=== PATIENT | male | born 1995 | race African-American/Black ===

== ENCOUNTER 2017-10-31 19:10 | Emergency (ER) | payer OTHER ==
[~2017-10-31] VITALS: Ht 167.6 cm; Wt 65.0 kg
[2017-10-31] MEDS ORDERED: SODIUM CHLORIDE 0.9% 1,000 ML IV ONE (20:03)
[2017-10-31] MEDS ORDERED: LIDOCAINE HCL 1%/EPI 1:200,000 30 ML VIAL MC ONE (20:15)
[2017-10-31] MEDS ORDERED: BACITRACIN ZINC OINT UDPKT TOP ONE (20:15)
[2017-10-31] MEDS ORDERED: TETANUS, DIPHTHERIA, PERTUSSIS VAC/PF 0.5ML (>7YR OLD) IM ONE (20:15)
[2017-10-31 20:51] LABS: BASOPHILS % 0.2 % (0.0-2.0); EOSINOPHILS % 0.1 % (0.0-5.0); HEMATOCRIT. 42.7 % (42.0-52.0); HEMOGLOBIN. 14.7 g/dL (14.0-18.0); LYMPHOCYTES % 11.6 % (20.0-50.0); MEAN CORPUSCULAR HEMOGLOBIN 30.2 pg (28.0-32.0); MEAN CORPUSCULAR VOLUME 87.5 fL (80.0-94.0); MEAN PLATELET VOLUME 7.7 fl (7.4-10.4); MONOCYTES % 10.9 % (2.0-8.0); NEUTROPHILS % 77.2 % (40.0-76.0); PLATELET 253 x1000/uL (130-400); RED BLOOD CELL COUNT 4.88 mill/uL (4.7-6.1); RED CELL DISTRIBUTION WIDTH 13.3 % (11.6-14.6)
[2017-10-31 20:56] LABS: CHLORIDE 107 mEq/L (98-107)
[2017-10-31 20:57] LABS: INR 1.2; PROTHROMBIN TIME 12.7 sec (9.4-11.6)
[2017-10-31 21:00] LABS: ETHANOL BLOOD < 10 mg/dL
[2017-10-31 21:03] LABS: AMMONIA 45 uMol/L (<32)
[2017-10-31] MEDS ORDERED: MORPHINE SULFATE 2 MG/ML CPJ (NOT FOR IM USE) IV STA (21:08)
[2017-10-31] MEDS ORDERED: MORPHINE SULFATE 4 MG/ML CPJ (NOT FOR IM USE) IV SCH (21:15)
[2017-10-31] MEDS ORDERED: LACTULOSE 20G/30ML UDC PO NR (22:30)
[2017-11-01 00:30] VITALS: BP 133/75
== END 2017-11-01 01:04 | disposition home or self-care (01) ==
LOC: ER 19:43
DX: S16.1XXA Strain of muscle, fascia and tendon at neck level, initial encounter (principal); S01.81XA Laceration without foreign body of other part of head, initial encounter; W22.8XXA Striking against or struck by other objects, initial encounter; Y93.89 Activity, other specified; Y92.89 Other specified places as the place of occurrence of the external cause; Y99.8 Other external cause status
CPT/HCPCS: 12011; 36415; 70450; 70486; 72125; 80053; 82140; 85025; 85610; 90471; 90715; 96361; 96374; 99285; G0482; J2270; J7030; Z7610

== ENCOUNTER 2018-07-16 21:00 | Emergency (ER) | payer MEDICAID, OTHER ==
[~2018-07-16] VITALS: Ht 172.7 cm; Wt 64.0 kg
[2018-07-16 21:17] VITALS: BP 138/81
== END 2018-07-16 22:50 | disposition left against medical advice (07) ==
LOC: ER 21:00
DX: R51 Headache (principal); Z53.21 Procedure and treatment not carried out due to patient leaving prior to being seen by health care provider